=== PATIENT | female | born 1975 ===

== ENCOUNTER 2019-02-09 22:26 | Emergency (ER) | payer OTHER ==
[~2019-02-09] VITALS: Ht 165.1 cm; Wt 72.6 kg
== END 2019-02-10 00:51 | disposition home or self-care (01) ==
LOC: ER 22:26
DX: M79.604 Pain in right leg (principal); M79.605 Pain in left leg; J45.909 Unspecified asthma, uncomplicated
CPT/HCPCS: 96372; 99283-25; J1885